=== PATIENT | male | born 1990 | race Caucasian/White ===

== ENCOUNTER → 2019-08-17 11:47 | Outpatient (CLI) | payer OTHER, SELFPAY ==
[2019-08-17 12:05] LABS: Basophils # 0.1 K/mm3 (0-0.2); Basophils % 0.6 % (0.1-2.0); Eosinophils # 0.1 K/mm3 (0.0-0.4); Hematocrit 49.3 % (42.0-52.0); Hemoglobin 16.6 g/dL (14.1-18.0); Lymphocytes # 2.1 K/mm3 (0.7-4.5); Lymphocytes % 25.3 % (10-50); Mean Corpuscular HGB Conc 33.7 g/dL (31.8-35.4); Mean Corpuscular Hemoglobin 31.7 pg (27.0-31.2); Mean Corpuscular Volume 94.1 fl (80-94); Mean Platelet Volume 9.3 fl (7.4-10.4); Monocytes # 0.4 K/mm3 (0.1-1.0); Monocytes % 5.1 % (1.7-9.3); Neutrophils # 5.5 K/mm3 (1.8-7.8); Neutrophils % 68.1 % (37.0-80.0); Platelet Count 219 K/mm3 (142-424); Red Blood Count 5.23 M/mm3 (4.60-6.20); White Blood Count 8.1 K/mm3 (4.8-10.8)
[2019-08-17 12:24] LABS: Chloride 103 mmol/L (98-107)
[2019-08-17 12:25] LABS: Potassium 4.7 mmoL/L (3.5-5.1); Sodium 137 mmol/L (136-145)
[2019-08-17 12:27] LABS: Alanine Aminotransferase 55 U/L (12-78); Albumin Level 4.7 g/dl (3.5-5.0); Alkaline Phosphatase 50 U/L (38-126); Anion Gap 10.7 mEq/L (5-15); Aspartate Amino Transferase 45 U/L (17-59); Bilirubin,Total 0.4 mg/dl (0.2-1.3); Blood Urea Nitrogen 14 mg/dl (9-20); Carbon Dioxide 28 mmol/L (22.0-30.0); Estimated Glomerular Filt Rate 87 ml/min (>60); GFR (African American) 105 ML/MIN (>60); Globulin 2.3 g/dL (1.3-3.2)
[2019-08-17 12:28] LABS: Calcium 9.9 mg/dl (8.4-10.2); Glucose 103 mg/dl (74-100)
--- NOTE | 2019-08-17 12:35 | XR_ITS ---
PROCEDURE: XR ACUTE ABDOMEN SERIES CLINICAL INDICATION: R LOWER QUAD ABD TENDERNESS W/ REBOUND TENDERNESS COMPARISON: No exams were available for comparison FINDINGS: Frontal view of the chest shows no acute finding. Upright and supine views of the abdomen show a nonspecific bowel gas pattern. No obstruction or free air. There is a mild amount of retained colonic feces. No acute bony anomalies and no abnormal calcifications apparent IMPRESSION: No acute findings. Dictated by: Sathya Nelson MD 08/17/2019 13:10 Electronically signed by Sathya Nelson MD in [place] 08/17/2019 13:10
== END ==
PROVIDERS: Visit Provider Nurse Practitioner Family
DX: R10.813 Right lower quadrant abdominal tenderness (principal); R10.84 Generalized abdominal pain
CPT/HCPCS: 36415; 74021; 80053; 85025

== ENCOUNTER → 2019-09-17 16:25 | Outpatient (CLI) | payer OTHER, SELFPAY | PROVIDERS: PCP Internal Medicine Adolescent Medicine; Visit Provider Internal Medicine Adolescent Medicine | DX: Z03.818 Encounter for observation for suspected exposure to other biological agents ruled out (principal); J01.00 Acute maxillary sinusitis, unspecified | CPT/HCPCS: U0003 ==

== ENCOUNTER → 2020-09-18 10:45 | Outpatient (CLI) | payer OTHER, SELFPAY | PROVIDERS: Visit Provider Nurse Practitioner Family | DX: Z11.52 Encounter for screening for COVID-19 (principal); R05 Cough; R52 Pain, unspecified | CPT/HCPCS: U0003 ==

== ENCOUNTER → 2021-02-16 15:58 | Outpatient (CLI) | payer OTHER, SELFPAY | PROVIDERS: Visit Provider Nurse Practitioner | DX: U07.1 COVID-19 (principal) | CPT/HCPCS: C9803; U0003; U0005 ==

== ENCOUNTER → 2022-08-09 18:34 | Outpatient (CLI) | payer SELFPAY ==
[2022-08-12 22:12] LABS: Neisseria gonorrhoeae, NAA Negative (Negative)
== END ==
LOC: LAB.DROPOF 18:35
PROVIDERS: PCP Family Medicine; Visit Provider Family Medicine
DX: R30.0 Dysuria (principal)
CPT/HCPCS: 87491; 87591